=== PATIENT | male | born 1965 | race Caucasian/White ===

== ENCOUNTER → 2017-07-06 | Outpatient (CLI) | payer BC ==
--- NOTE | 2017-07-07 07:14 | XR ---
EXAMINATION TYPE: XR ribs LT DATE OF EXAM: 07/06/2017 CLINICAL HISTORY: Pain, Fall Four views of the ribs fail demonstrate evidence for displaced rib fracture or secondary sign of rib fracture. Visualized lungs are clear. No evidence for pneumothorax. IMPRESSION: No displaced rib fractures seen. ICD 10 NO FRACTURE, INITIAL EVALUATION
== END | disposition home or self-care (01) ==
LOC: RADXRMAIN 15:09
PROVIDERS: ATTEND Physical Medicine & Rehabilitation
DX: S30.0XXD Contusion of lower back and pelvis, subsequent encounter (principal); G24.3 Spasmodic torticollis; M47.812 Spondylosis without myelopathy or radiculopathy, cervical region; M53.82 Other specified dorsopathies, cervical region; M51.34 Other intervertebral disc degeneration, thoracic region; M50.320 Other cervical disc degeneration, mid-cervical region, unspecified level; M79.1 Myalgia

== ENCOUNTER → 2017-07-12 | Outpatient (CLI) | payer BC ==
--- NOTE | 2017-07-12 15:27 | US ---
EXAMINATION TYPE: US venous doppler duplex LE RT DATE OF EXAM: 07/12/2017 3:02 PM COMPARISON: NONE CLINICAL HISTORY: R60.0 Localized edema. right leg pain and swelling SIDE PERFORMED: Right TECHNIQUE: The lower extremity deep venous system is examined utilizing real time linear array sonog reina with graded compression, doppler sonography and color-flow sonography. VESSELS IMAGED: External Iliac Vein (EIV) Common Femoral Vein Deep Femoral Vein Greater Saphenous Vein * Femoral Vein Popliteal Vein Small Saphenous Vein * Proximal Calf Veins (* superficial vessels) Right Leg: Negative for DVT Grayscale, color doppler, spectral doppler imaging performed of the deep veins of the lower extremiti es. There is normal flow, compressibility, vascular waveforms. IMPRESSION: No evident deep venous thrombosis at or above the right knee.
== END | disposition home or self-care (01) ==
LOC: RADUSWWP 14:22
PROVIDERS: ATTEND Internal Medicine
DX: R60.0 Localized edema (principal)

== ENCOUNTER → 2018-10-27 | Outpatient (CLI) | payer BC ==
[2018-10-27 11:51] LABS: African American GFR (CKD) >90 (>60 ml/min/1.73 sqM); Blood Urea Nitrogen 16 mg/dL (9-20)
--- NOTE | 2018-10-27 13:06 | CT ---
EXAMINATION TYPE: CT abdomen pelvis wo con, CT abdomen w con DATE OF EXAM: 10/27/2018 HISTORY: Hematuria CT DLP: 1056.45 (accession [id number]), 1208.86 (accession [id number]) mGycm. Automated Exposure Control for Dose Reduction was Utilized. TECHNIQUE: CT scan of the abdomen and pelvis is performed without oral or IV contrast. Following thi s CT of the abdomen was repeated with IV contrast. COMPARISON: NONE FINDINGS: Within the limitations of a non-contrast study, the following observations are made. LUNG BASES: Some patchy bibasilar linear scarring and/or atelectasis is present.. LIVER/GB: No significant abnormality is appreciated. PANCREAS: No significant abnormality is seen. SPLEEN: Small splenule in splenic hilum. ADRENALS: No significant abnormality is seen. KIDNEYS: Noncontrast images show no renal calculi bilaterally. Postcontrast images show symmetric cor tical medullary uptake and excretion without hydronephrosis seen bilaterally. There is simple appeari ng 2.2 cm exophytic cyst upper pole of the right kidney coronal image 66. Noncontrast CT shows no int raluminal calculi in the bladder or suspicious intraluminal mass. Occasional scattered adjacent pelvi c phleboliths are seen. BOWEL: No significant abnormality is seen. GENITAL ORGANS: Prostate gland is upper limits of normal in size. LYMPH NODES: No greater than 1cm abdominal or pelvic lymph nodes are appreciated. OSSEOUS STRUCTURES: No significant abnormality is seen. OTHER: Moderate-sized umbilical hernia containing fat and tiny mesenteric vessels. IMPRESSION: No renal stones or hydronephrosis is seen bilaterally. No suspicious findings seen to acc ount for patient's symptoms of hematuria.
== END | disposition home or self-care (01) ==
LOC: RADCTMAIN 11:20
PROVIDERS: ATTEND Urology
DX: R31.0 Gross hematuria (principal); Z88.2 Allergy status to sulfonamides; Z91.011 Allergy to milk products
CPT/HCPCS: 82565; 84520; 74160; 74176; 36415; Q9967

== ENCOUNTER 2020-04-04 07:50 | Day surgery (SDC) | payer BC, OTHER ==
[2020-04-02 16:30] VITALS: BMI 30.7
[~2020-04-04 07:50] MED LIST: LACTATED RINGERS 1,000 ML IV SCH
[2020-04-04] MEDS ORDERED: MIDAZOLAM 2 MG/2 ML VIAL IV ONE (08:44)
[2020-04-04] MEDS ORDERED: LIDOCAINE 1% (10MG/ML) FOR IV START INTRADERMA ONE (08:44)
[2020-04-04 08:45] LABS: Glucose,Whole Blood 77 mg/dL (75-99)
[2020-04-04 08:50] VITALS: RESP 16; TEMP 98.1
[2020-04-04] MEDS ORDERED: LIDOCAINE 1% INJ 10MG/ML (20 ML MDV) ONE (09:16)
[2020-04-04] MEDS ORDERED: PROPOFOL 10 MG/ML 20 ML VIAL IV ONE (09:16)
--- NOTE | 2020-04-04 09:40 | P.PCN ---
Date of Procedure: 04/04/20 Procedure(s) Performed: Brief history: Patient is a pleasant 55-year-old white male scheduled for an elective upper endoscopy as well as colonoscopy as a part of evaluation of epigastric discomfort, heartburn and intermittent rectal bleeding on and off for the last few months duration. Procedure performed: Esophagogastroduodenoscopy biopsy Colonoscopy with biopsy Preoperative diagnosis: GERD epigastric pain Rectal bleeding Anesthesia: MAC Procedure: After informed consent was obtained from the patient was brought into the endoscopy unit and IV sedation was administered by anesthesia under continuous monitoring. Initially upper endoscopy was done. The Olympus GF 160 video endoscope was inserted inserted into the mouth and esophagus intubated without any difficulty and was gradually advanced into the stomach and duodenum and carefully examined. The bulb and second part of the duodenum appeared normal. The scope was then withdrawn into the stomach adequately insufflated with air and upon careful examination the antrum and body,had mild gastritis and biopsies were done from this area. The cardia and fundus appeared normal. The scope was then withdrawn into the esophagus. The GE junction was located at 40 cm to the incisors. It appeared regular with one superficial erosion consistent with LA grade B reflux esophagitis. Rest of esophagus appeared normal and the patient tolerated the procedure well. At this time the patient continued to remain sedation. Initial digital rectal examination was normal. Olympus CF 160 video colonoscope was then inserted into the rectum and gradually advanced to the cecum without any difficulty. Careful examination was performed as the scope was gradually being withdrawn. The prep was excellent. The cecum, ascending colon,normal. 2 mm sessile polyp that was biopsied. transverse colon, descending colon, sigmoid colon and rectum appeared normal. Retroflexion was performed in the rectum and small internal hemorrhoids were noted. Patient tolerated the procedure well. Impression: 1 Upper endoscopy revealed mild diffuse gastritis and LA grade B esophagitis. 2 Colonoscopy revealed a 5 mm transverse colon polyp that was removed by cold biopsy and small internal hemorrhoids Recommendations: Findings of this examination were discussed with the patient as well a his family. He was advised to follow with the biopsy results. He will continue with Prilosec 40 mg daily and follow antireflux measures. If the biopsy the colon polyp revealed an adenoma he can have a repeat colonoscopy in 5 years]
[2020-04-04 10:04] VITALS: BP 148/90; PULSE 65
== END 2020-04-04 10:24 | disposition home or self-care (01) ==
LOC: ORWHC2ENDO 07:50
PROVIDERS: ATTEND Internal Medicine Gastroenterology
DX: K63.5 Polyp of colon (principal); K64.8 Other hemorrhoids; K29.51 Unspecified chronic gastritis with bleeding; K21.01 Gastro-esophageal reflux disease with esophagitis, with bleeding; K22.11 Ulcer of esophagus with bleeding; I10 Essential (primary) hypertension; E78.5 Hyperlipidemia, unspecified; I48.91 Unspecified atrial fibrillation; J45.909 Unspecified asthma, uncomplicated; E07.9 Disorder of thyroid, unspecified; F40.240 Claustrophobia; M19.90 Unspecified osteoarthritis, unspecified site; F41.9 Anxiety disorder, unspecified; K21.9 Gastro-esophageal reflux disease without esophagitis; Z79.01 Long term (current) use of anticoagulants; Z79.1 Long term (current) use of non-steroidal anti-inflammatories (NSAID); Z79.899 Other long term (current) drug therapy; Z79.891 Long term (current) use of opiate analgesic; Z79.890 Hormone replacement therapy; Z96.5 Presence of tooth-root and mandibular implants; Z88.2 Allergy status to sulfonamides
CPT/HCPCS: 45380; 43239; 88305; J2250; J2001; J2704

== ENCOUNTER → 2023-08-26 | Outpatient (CLI) | payer BC ==
--- NOTE | 2023-08-28 19:36 | XR ---
EXAMINATION TYPE: XR chest 2V DATE OF EXAM: 08/26/2023 COMPARISON: 01/19/2014 HISTORY: 58-year-old male J18.9 PNEUMONIA, UNSPECIFIED ORGANISM TECHNIQUE: Frontal and lateral views FINDINGS: Heart upper limits of normal in size. Mild hyperinflation there is patchy opacity at the left base. N o other consolidation or pleural effusion. IMPRESSION: COPD with some patchy atelectasis versus early infiltrate at the left base. Correlate with symptoms.
== END | disposition home or self-care (01) ==
LOC: RADXRMAIN 16:23
PROVIDERS: ATTEND Family Medicine
DX: J18.9 Pneumonia, unspecified organism (principal); J44.9 Chronic obstructive pulmonary disease, unspecified; J98.11 Atelectasis
CPT/HCPCS: 71046

== ENCOUNTER → 2023-12-31 | Outpatient (CLI) | payer BC ==
[2024-01-01 06:31] LABS: HCT 55.6 % (39.6-50.0); HGB 17.9 g/dL (13.0-17.0); MCHC 32.2 g/dL (32.0-37.0); MCV 99.3 FL (80.0-97.0); Mean Platelet Volume 11.1 FL (9.5-12.2); NRBC Per 100 WBC 0 X 10*3/uL (0.00-0.01); Platelet Count 173 X 10*3/uL (140-440); RDW 12.4 % (11.5-14.5); WBC 8.09 X 10*3/uL (4.50-10.00)
[2024-01-01 06:32] LABS: Chol/HDL Ratio 5.18 Ratio; Estradiol 24.7 pg/mL; LDL Cholesterol,Calculated 115.2 mg/dL (0.0-131.0); Magnesium 2.1 mg/dL (1.5-2.4)
[2024-01-01 06:39] LABS: Insulin Level 11.7 mIU/mL (3.0-25.0)
[2024-01-01 07:35] LABS: BUN/Creat Ratio 10.67 Ratio (12.00-20.00); Blood Urea Nitrogen 12.8 mg/dL (9.0-27.0); Carbon Dioxide 28.3 mmol/L (21.6-31.8); Chloride 108 mmol/L (96-109); Glucose 89 mg/dL (70-110); Sodium 146 mmol/L (135-145)
[2024-01-01 07:36] LABS: ALT 37 U/L (10-49); AST 19 U/L (14-35); Albumin 4.4 g/dL (3.8-4.9); Alkaline Phosphatase 45 U/L (41-126); Bilirubin, Conjugated <0.20 mg/dL (0.20-0.40); Calcium 9.3 mg/dL (8.7-10.3); Prostate Specific Antigen 0.32 ng/mL (0.000-4.500); T4, Free (Free Thyroxine) 1.65 ng/dL (0.80-1.80); Total Bilirubin 0.7 mg/dL (0.3-1.2); Total Protein 6.4 g/dL (6.2-8.2)
[2024-01-01 10:12] LABS: Bilirubin,Unconjugated >0.5 mg/dL (0.2-1.0)
[2024-01-01 22:28] LABS: ACTH 20.2 pg/mL (0.00-45.99)
== END | disposition home or self-care (01) ==
LOC: LABWHC1 09:52
PROVIDERS: ATTEND Internal Medicine Endocrinology, Diabetes & Metabolism
DX: E29.1 Testicular hypofunction (principal); E03.8 Other specified hypothyroidism; M81.0 Age-related osteoporosis without current pathological fracture; E55.9 Vitamin D deficiency, unspecified; E88.810 Metabolic syndrome
CPT/HCPCS: 36415; 80053; 80061; 82024; 82248; 82306; 82533; 82670; 83036; 83525; 83735; 83970; 84153; 84402; 84439; 84443; 85027

== ENCOUNTER 2024-04-17 12:30 | Emergency (ER) | payer BC ==
[2024-04-17 12:59] VITALS: BP 136/87; PULSE 93; RESP 20; TEMP 97.7
--- NOTE | 2024-04-17 13:42 | ED ---
General Adult HPI - General Chief complaint: Extremity Injury, Lower Stated complaint: Left knee injury Time Seen by Provider: 04/17/24 12:48 Source: patient, RN notes reviewed Mode of arrival: wheelchair Limitations: physical limitation - History of Present Illness Initial comments: This is a 59-year-old male who is presenting to the emergency department with his for chief complaint of left knee pain/injury, Patient states he has a known meniscus injury of the left knee however today after standing he felt a popping sensation and pain of the left knee that immediately intensified. Denies falling or landing onto the knee. He denies other injuries at this time. Follows with regulatory specialist where previous MRI was completed earlier this year consistent with a meniscus injury of the left knee. No other acute complaints at this time. - Related Data Home Medications Medication Instructions Recorded Confirmed Albuterol Inhaler [Ventolin Hfa 1 - 2 puff INHALATION Q6HR PRN 11/06/15 04/02/20 Inhaler] Cholecalciferol [Vitamin D3] 5,000 unit PO DAILY 11/06/15 04/02/20 Hydrocodone/Acetaminophen 1 each PO QID PRN 11/06/15 04/02/20 [Hydrocodon-Acetaminophn 10-325] Levothyroxine Sodium [Levoxyl] 300 mcg PO 199911/06/15 04/02/20 Metoprolol Succinate [Toprol XL] 25 mg PO DAILY 11/06/15 04/02/20 Omeprazole 40 mg PO HS 11/06/15 04/02/20 Pravastatin Sodium 40 mg OP DAILY 11/06/15 04/02/20 Propafenone [Rythmol] 225 mg PO TID 11/06/15 04/02/20 Testosterone Cypionate 75 mg IM Q14D 11/06/15 04/02/20 [Depo-Testosterone] Zafirlukast 20 mg PO BID 11/06/15 04/02/20 Apixaban [Eliquis] 5 mg PO BID 04/02/20 04/02/20 Benralizumab [Fasenra] 30 mg SQ Q60D 04/02/20 04/02/20 Calcium Carbonate [Calcium] 600 mg PO DAILY 04/02/20 04/02/20 Celecoxib [CeleBREX] 200 mg PO Q2D 04/02/20 04/02/20 Ferrous Sulfate [Feosol] 325 mg PO DAILY 04/02/20 04/02/20 Previous Rx's Medication Instructions Recorded Cyclobenzaprine [Flexeril] 5 mg PO TID PRN #15 tablet 04/17/24 Allergies Allergy/AdvReac Type Severity Reaction Status Date / Time Sulfa (Sulfonamide Allergy Unknown Verified 04/17/24 12:54 Antibiotics) Childhood Review of Systems ROS Statement: Those systems with pertinent positive or pertinent negative responses have been documented in the HPI. ROS Other: All systems not noted in ROS Statement are negative. Past Medical History Past Medical History: Atrial Fibrillation, Asthma, GERD/Reflux, Hyperlipidemia, Hypertension, Musculoskeletal Disorder, Osteoarthritis (OA), Thyroid Disorder Additional Past Medical History / Comment(s): recent bloating, nausea sometimes, lower back pain History of Any Multi-Drug Resistant Organisms: None Reported Past Surgical History: Cardiac Ablation, Heart Catheterization, Hernia Repair, Orthopedic Surgery Additional Past Surgical History / Comment(s): BILAT EYE LASIK SX. RT ELBOW- TENNIS ELBOW. SINUS SX. HERNIA SX X 3. COLONOSCOPY Past Anesthesia/Blood Transfusion Reactions: No Reported Reaction Past Psychological History: Anxiety Smoking Status: Never smoker Past Alcohol Use History: None Reported Past Drug Use History: None Reported - Past Family History Mother Family Medical History: No Reported History General Exam - General Exam Comments Initial Comments: Visual Physical Exam Vital signs reviewed General: Well-appearing, nontoxic, no acute distress. Head: Normocephalic, atraumatic Eyes: PERRLA, EOMI ENT: Airway patent Chest: Nonlabored breathing Skin: No visual rash, normal skin tone Neuro: Alert and oriented 3 Musculoskeletal: No gross abnormalities Limitations: physical limitation General appearance: alert, in no apparent distress Neck exam: Present: normal inspection. Absent: tenderness, meningismus, lymphadenopathy Respiratory exam: Present: normal lung sounds bilaterally. Absent: respiratory distress, wheezes, rales, rhonchi, stridor Cardiovascular Exam: Present: regular rate, normal rhythm, normal heart sounds. Absent: systolic murmur, diastolic murmur, rubs, gallop, clicks GI/Abdominal exam: Present: soft, normal bowel sounds. Absent: distended, tenderness, guarding, rebound, rigid Left Knee exam: Present: normal inspection, tenderness. Absent: swelling, ecchymosis, deformity, crepitus, dislocation, effusion Neurovascular tendon exam: Present: no vascular compromise. Absent: pulse deficit Gait: observed and limited by pain Back exam: Present: normal inspection Neurological exam: Present: alert, oriented X3, CN II-XII intact Course Vital Signs 04/17/24 12:54 Temperature 97.7 F Pulse Rate 93 Respiratory 20 Rate Blood Pressure 136/87 O2 Sat by Pulse 94 L Oximetry Medical Decision Making - Medical Decision Making Was pt. sent in by a medical professional or institution (, PA, TANYARD WORKER, urgent care, hospital, or half-way...) When possible be specific @ -No Did you speak to anyone other than the patient for history (EMS, parent, family, police, friend...)? What history was obtained from this source @ -No Did you review nursing and triage notes (agree or disagree)? Why? @ -I reviewed and agree with nursing and triage notes Were old charts reviewed (outside hosp., previous admission, EMS record, old EKG, old radiological studies, urgent care reports/EKG's, half-way records)? Report findings @ -No old charts were reviewed Differential Diagnosis (chest pain, altered mental status, abdominal pain women, abdominal pain men, vaginal bleeding, weakness, fever, dyspnea, syncope, headache, dizziness, GI bleed, back pain, seizure, CVA, palpatations, mental health, musculoskeletal)? @ -Differential Musculoskeletal Muscular strain, contusion, ligament sprain, fracture, arthritis, septic arthritis, bursitis, cellulitis, muscle spasm, nerve compression, DVT, arterial occlusion, herpes zoster, electrolyte abnormality, tumor.... This is not meant to be in all inclusive list EKG interpreted by me (3pts min.). @ -Differential Musculoskeletal Muscular strain, contusion, ligament sprain, fracture, arthritis, septic arthritis, bursitis, cellulitis, muscle spasm, nerve compression, DVT, arterial occlusion, herpes zoster, electrolyte abnormality, tumor.... This is not meant to be in all inclusive list X-rays interpreted by me (1pt min.). @ -X-ray of the left knee reveals no acute osseous abnormality CT interpreted by me (1pt min.). @ -None done U/S interpreted by me (1pt. min.). @ -None done What testing was considered but not performed or refused? (CT, X-rays, U/S, labs)? Why? @ -None What meds were considered but not given or refused? Why? @ -None Did you discuss the management of the patient with other professionals (professionals i.e. , PA, TANYARD WORKER, lab, RT, psych nurse, case management social worker, bar and filler assembler, teacher, press officer, watch caser)? Give summary @ -No Was smoking cessation discussed for >3mins.? @ -No Was critical care preformed (if so, how long)? @ -No Were there social determinants of health that impacted care today? How? (Homelessness, low income, unemployed, alcoholism, drug addiction, transportation, low edu. Level, literacy, decrease access to med. care, prison, rehab)? @ -No Was there de-escalation of care discussed even if they declined (Discuss DNR or withdrawal of care, Hospice)? DNR status @ -No What co-morbidities impacted this encounter? (DM, HTN, Smoking, COPD, CAD, Cancer, CVA, ARF, Chemo, Hep., AIDS, mental health diagnosis, sleep apnea, morbid obesity)? @ -None Was patient admitted / discharged? Hospital course, mention meds given and route, prescriptions, significant lab abnormalities, going to OR and other pertinent info. @ -Discharge. 59-year-old male presenting with left knee pain. Physical exam remarkable for pain with varus and valgus stress in addition to palpation of the medial and anterior knee that is exacerbated with flexion. Patient arrived wi th pain medication. X-ray negative for acute process. Patient is provided with crutches and knee immobilizer in addition to outpatient prescription for muscle relaxer and instructed to follow-up with regulatory specialist for further evaluation with likely repeat MRI. Case discussed with Dr. Longoria Undiagnosed new problem with uncertain prognosis? @ -No Drug Therapy requiring intensive monitoring for toxicity (Heparin, Nitro, Insulin, Cardizem)? @ -No Were any procedures done? @ -No Diagnosis/symptom? @ -left knee sprain, knee pain Acute, or Chronic, or Acute on Chronic? @ -acute Uncomplicated (without systemic symptoms) or Complicated (systemic symptoms)? @ -uncomplicated Side effects of treatment? @ -No Exacerbation, Progression, or Severe Exacerbation? @ -No Poses a threat to life or bodily function? How? (Chest pain, [place], AR, pneumonia, PE, COPD, DKA, ARF, appy, cholecystitis, CVA, Diverticulitis, Homicidal, Suicidal, threat to staff... and all critical care pts) @ -No Disposition Clinical Impression: Knee sprain Disposition: HOME SELF-CARE Condition: Good Instructions (If sedation given, give patient instructions): Knee Sprain (ED) Additional Instructions: Please return to the Emergency Department if symptoms worsen or any other concerns. Prescriptions: Cyclobenzaprine [Flexeril] 5 mg PO TID PRN #15 tablet PRN Reason: Muscle Spasm Is patient prescribed a controlled substance at d/c from ED?: No Referrals: Jeramie Collado MD [Primary Care Provider] - 1-2 days Time of Disposition: 14:42
--- NOTE | 2024-04-17 14:16 | XR ---
EXAMINATION TYPE: XR knee complete LT DATE OF EXAM: 04/17/2024 2:08 PM COMPARISON: None. CLINICAL INDICATION: Male, 59 years old with history of injury, pain, pain TECHNIQUE: 3 view(s) obtained. FINDINGS: Joint space is preserved. No acute fracture or dislocation evident. No joint effusion is evident. Follow-up exam in 7-10 days from acute trauma for continued pain. MRI could be performed for soft tis moises evaluation. IMPRESSION: 1. No acute osseous abnormality radiographically apparent. [facility], , 04/17/2024 2:13 PM
[2024-04-17] MEDS: HYDROmorphone 1 MG/ML 1 ML SYRINGE IM STA (15:55)
== END 2024-04-17 16:13 | disposition home or self-care (01) ==
LOC: EC 12:30
DX: S83.92XA Sprain of unspecified site of left knee, initial encounter (principal); Z88.2 Allergy status to sulfonamides; X58.XXXA Exposure to other specified factors, initial encounter
CPT/HCPCS: 99283; 73562; 96372; J1171